=== PATIENT | female | born 1985 | race Hispanic/Latino ===

== ENCOUNTER 2020-02-19 19:34 | Emergency (ER) | payer SELFPAY ==
[2020-02-19] MEDS ORDERED: MORPHINE SULFATE 4 MG/1ML SYG ONE (20:02)
[2020-02-19] MEDS ORDERED: ONDANSETRON HCL 4 MG/2 ML VIAL ONE (20:02)
[2020-02-19] MEDS ORDERED: SODIUM CHLORIDE 0.9% 1000ML 1,000 ML IV ONE (21:07)
[2020-02-19] MEDS ORDERED: DICYCLOMINE HCL 20 MG TAB ONE (22:04)
== END 2020-02-19 23:12 | disposition home or self-care (01) ==
LOC: EDH 19:34
DX: K52.9 Noninfective gastroenteritis and colitis, unspecified (principal)
CPT/HCPCS: 36415; 76705; 80053; 81001; 81025; 83690; 85025; 96361; 96374; 96375; 99284; J2270; J2405; J7030

== ENCOUNTER 2020-03-04 12:16 | Emergency (ER) | payer SELFPAY ==
[2020-03-04 14:05] LABS: APPEARANCE,URINE Clear (CLEAR); BILIRUBIN,URINE Negative (NEGATIVE); COLOR,URINE Yellow (YELLOW); GLUCOSE, URINE (UA) TRACE mg/dL (NEGATIVE); KETONES,URINE Negative (NEGATIVE); LEUKOCYTE ESTERASE ,URINE Trace (NEGATIVE); NITRATE,URINE Negative (NEGATIVE); OCCULT BLOOD,URINE Negative (NEGATIVE); PH,URINE 6.5 (5.0-8.0); PROTEIN,URINE Trace mg/dL (NEGATIVE)
[2020-03-04 14:06] LABS: HCG,QUAL RESULT NEGATIVE (NEGATIVE)
[2020-03-04 14:09] LABS: BASOPHILS % (AUTO) 0.4 % (0.0-5.0); EOSINOPHILS % (AUTO) 2.6 % (0.0-8.0); HEMATOCRIT 47.3 % (36-48); LYMPHOCYTES % (AUTO) 23.3 % (21.0-51.0); MEAN CORPUSCULAR HGB CONC 33.2 g/dL (32.0-36.0); MEAN CORPUSCULAR VOLUME 87.3 fL (79-99); MONOCYTES % (AUTO) 3.3 % (3.0-13.0); NEUTROPHILS % (AUTO) 70.1 % (40.0-77.0); PLATELET COUNT (AUTO) 184 K/uL (130-400); RED BLOOD CELL COUNT(AUTO) 5.42 MIL/uL (4.00-5.50); RED CELL DISTRIBUTION WIDTH 13.4 % (11.0-15.5); WHITE BLOOD COUNT (AUTO) 7.2 K/uL (4.8-10.8)
[2020-03-04 14:22] LABS: CREATININE 0.7 mg/dL (0.5-1.5); POTASSIUM 3.8 mmol/L (3.5-5.1)
[2020-03-04] MEDS ORDERED: ONDANSETRON HCL 4 MG/2 ML VIAL ONE (14:25)
[2020-03-04] MEDS ORDERED: KETOROLAC TROMETHAMINE 30MG/ML ONE (14:25)
[2020-03-04 14:26] LABS: BACTERIA,URINE Few /HPF (None Seen); MUCUS,URINE Many LPF (None Seen); SQUAMOUS EPITHELIAL CELL,UR Moderate /HPF (0-2)
[2020-03-04 14:26] LABS: ALBUMIN 3.5 g/dL (3.5-5.0); BILIRUBIN,TOTAL 0.4 mg/dL (0.2-1.0); TOTAL PROTEIN, SERUM 7.7 g/dL (6.0-8.3)
[2020-03-04] MEDS ORDERED: FAMOTIDINE/PF 20 MG/2 ML VIAL IV ONE (14:26)
== END 2020-03-04 16:57 | disposition home or self-care (01) ==
LOC: EDH 12:16
DX: K76.89 Other specified diseases of liver (principal); R10.11 Right upper quadrant pain; R11.2 Nausea with vomiting, unspecified; Z98.890 Other specified postprocedural states
CPT/HCPCS: 36415; 74176; 80053; 81001; 81025; 83690; 85025; 93005; 96374; 96375; 99285; J1885; J2405; J3490

== ENCOUNTER 2022-04-12 13:48 | Emergency (ER) | payer OTHER ==
[~2022-04-12] VITALS: Ht 167.6 cm; Wt 86.2 kg
[2022-04-12] MEDS ORDERED: 0.9%NACL 1000ML 1,000 ML IV SCH (14:00)
[2022-04-12] MEDS ORDERED: ACETAMINOPHEN 500 MG TABLET PO ONE (14:00)
[2022-04-12] MEDS ORDERED: PHENAZOPYRIDINE HCL 200 MG TABLET PO ONE (14:00)
[2022-04-12 14:13] LABS: APPEARANCE,URINE SL CLOUDY (CLEAR); BILIRUBIN,URINE NEGATIVE (NEGATIVE); COLOR,URINE YELLOW (YELLOW); GLUCOSE, URINE (UA) 500 mg/dL (NEGATIVE); KETONES,URINE 40 mg/dL (NEGATIVE); LEUKOCYTE ESTERASE ,URINE SMALL (NEGATIVE); NITRATE,URINE NEGATIVE (NEGATIVE); OCCULT BLOOD,URINE NEGATIVE (NEGATIVE); PROTEIN,URINE 30 mg/dL (NEGATIVE); UROBILINOGEN,URINE 0.2 mg/dL (0.2-1.0)
[2022-04-12 14:14] VITALS: BP 175/85
[2022-04-12 14:14] LABS: BASOPHILS % (AUTO) 0.3 % (0.0-5.0); EOSINOPHILS % (AUTO) 3.2 % (0.0-8.0); HEMATOCRIT 36.5 % (36-48); LYMPHOCYTES % (AUTO) 24.4 % (21.0-51.0); MEAN CORPUSCULAR HEMOGLOBIN 23.2 pg (27.0-33.0); MEAN CORPUSCULAR VOLUME 74.8 fL (79-99); MONOCYTES % (AUTO) 4.1 % (3.0-13.0); NEUTROPHILS % (AUTO) 67.7 % (40.0-77.0); PLATELET COUNT (AUTO) 251 K/uL (130-400); RED BLOOD CELL COUNT(AUTO) 4.88 MIL/uL (4.00-5.50); RED CELL DISTRIBUTION WIDTH 15.5 % (11.0-15.5); WHITE BLOOD COUNT (AUTO) 8.8 K/uL (4.8-10.8)
[2022-04-12 14:24] LABS: CREATININE 0.6 mg/dL (0.5-1.5); POTASSIUM 3.2 mmol/L (3.5-5.1)
[2022-04-12 14:25] LABS: HCG,QUALITATIVE URINE NEGATIVE (NEGATIVE)
[2022-04-12 14:29] LABS: ALBUMIN 3.5 g/dL (3.5-5.0); TOTAL PROTEIN, SERUM 7.5 g/dL (6.0-8.3)
[2022-04-12] MEDS ORDERED: CEFTRIAXONE 1G VIAL ONE (14:53)
[2022-04-12 14:55] LABS: BACTERIA,URINE Few /HPF (None Seen); SQUAMOUS EPITHELIAL CELL,UR Moderate /HPF (0-2)
[2022-04-12 14:56] LABS: MUCUS,URINE Few LPF (None Seen)
[2022-04-12] MEDS ORDERED: CEFTRIAXONE 1G VIAL IVP ONE (15:00)
[2022-04-12] MEDS ORDERED: POTASSIUM BICARB/CIT AC 25 MEQ TABLET.EFF PO ONE (15:00)
[2022-04-12] MEDS ORDERED: PHEN-847 PO (15:08)
[2022-04-12] MEDS ORDERED: CEPH500B PO (15:08)
== END 2022-04-12 15:21 | disposition home or self-care (01) ==
LOC: EDH 13:48
DX: N39.0 Urinary tract infection, site not specified (principal); E11.65 Type 2 diabetes mellitus with hyperglycemia; E87.6 Hypokalemia; E66.01 Morbid (severe) obesity due to excess calories; Z68.30 Body mass index [BMI] 30.0-30.9, adult
CPT/HCPCS: 99284; 96374; 96361; 80053; 85025; 87040 ×2; 87088; 83605; 81001; 81025; 36415; J7030; J0696

== ENCOUNTER 2022-06-05 15:46 | Emergency (ER) | payer OTHER ==
[~2022-06-05] VITALS: Ht 167.6 cm; Wt 127.0 kg
[~2022-06-05 15:46] MED LIST: CEPH500B PO; PHEN-847 PO
[2022-06-05 16:09] LABS: BASOPHILS % (AUTO) 0.4 % (0.0-5.0); EOSINOPHILS % (AUTO) 3.3 % (0.0-8.0); HEMATOCRIT 35.2 % (36-48); LYMPHOCYTES % (AUTO) 23.9 % (21.0-51.0); MEAN CORPUSCULAR HEMOGLOBIN 23.4 pg (27.0-33.0); MEAN CORPUSCULAR HGB CONC 30.7 g/dL (32.0-36.0); MEAN CORPUSCULAR VOLUME 76.4 fL (79-99); MONOCYTES % (AUTO) 4.2 % (3.0-13.0); NEUTROPHILS % (AUTO) 67.8 % (40.0-77.0); PLATELET COUNT (AUTO) 258 K/uL (130-400); RED BLOOD CELL COUNT(AUTO) 4.61 MIL/uL (4.00-5.50); RED CELL DISTRIBUTION WIDTH 15.9 % (11.0-15.5); WHITE BLOOD COUNT (AUTO) 8.5 K/uL (4.8-10.8)
[2022-06-05 16:16] LABS: CREATININE 0.7 mg/dL (0.5-1.5)
[2022-06-05 16:21] LABS: ALBUMIN 3.4 g/dL (3.5-5.0); TOTAL PROTEIN, SERUM 7.4 g/dL (6.0-8.3)
[2022-06-05 16:21] LABS: APPEARANCE,URINE CLEAR (CLEAR); BILIRUBIN,URINE NEGATIVE (NEGATIVE); COLOR,URINE COLORLESS (YELLOW); GLUCOSE, URINE (UA) >=1000 mg/dL (NEGATIVE); KETONES,URINE 5 mg/dL (NEGATIVE); LEUKOCYTE ESTERASE ,URINE 25 Leu/uL (NEGATIVE); NITRATE,URINE NEGATIVE (NEGATIVE); OCCULT BLOOD,URINE NEGATIVE (NEGATIVE); PH,URINE 6.5 (5.0-8.0); PROTEIN,URINE NEGATIVE (NEGATIVE); UROBILINOGEN,URINE 0.2 mg/dL (0.2-1.0)
[2022-06-05 16:23] LABS: HCG,QUALITATIVE URINE NEGATIVE (NEGATIVE); MUCUS,URINE RARE LPF (None Seen); SQUAMOUS EPITHELIAL CELL,UR MOD /HPF (0-2); YEAST,URINE BUDDING FEW /HPF (None Seen)
[2022-06-05] MEDS ORDERED: 0.9% NACL 500ML IV.SOLN 500 ML IV SCH (16:30)
[2022-06-05] MEDS ORDERED: INSULIN HUMULIN R 100 UNIT/ML 3ML IV ONE (16:30)
[2022-06-05] MEDS ORDERED: ACETAMINOPHEN 500 MG TABLET PO ONE (17:30)
[2022-06-05 18:20] VITALS: BP 132/78
== END 2022-06-05 18:21 | disposition home or self-care (01) ==
LOC: EDH 15:46
DX: E11.9 Type 2 diabetes mellitus without complications (principal); R03.0 Elevated blood-pressure reading, without diagnosis of hypertension; R07.89 Other chest pain; E66.01 Morbid (severe) obesity due to excess calories; Z68.42 Body mass index [BMI] 45.0-49.9, adult; Z79.899 Other long term (current) drug therapy
CPT/HCPCS: 99285; 96374; 71045; 96361; 84484; 80053; 85025; 85730; 82948; 81001; 81025; 36415; 93005; J1815; J7040

== ENCOUNTER 2022-07-04 00:54 | Emergency (ER) | payer OTHER ==
[~2022-07-04] VITALS: Ht 160 cm; Wt 122.5 kg
[2022-07-04 01:08] VITALS: BP 128/75
[2022-07-04] MEDS ORDERED: IBUP-1493 PO (01:36)
[2022-07-04] MEDS ORDERED: AMOX500C2 PO (01:36)
[2022-07-04] MEDS ORDERED: OXYCODONE/ACETAMIN 5/325MG TAB PO ONE (02:00)
== END 2022-07-04 01:55 | disposition home or self-care (01) ==
LOC: EDH 00:54
DX: K04.7 Periapical abscess without sinus (principal); E11.9 Type 2 diabetes mellitus without complications; E66.9 Obesity, unspecified; Z68.42 Body mass index [BMI] 45.0-49.9, adult; Z98.890 Other specified postprocedural states

== ENCOUNTER 2022-07-10 08:30 | Inpatient (IN) | payer OTHER ==
[~2022-07-10] VITALS: Ht 160 cm; Wt 118.4 kg
[~2022-07-10 08:30] MED LIST changes: +AMOX500C2 PO; +IBUP-1493 PO
[2022-07-10 08:55] LABS: BASOPHILS % (AUTO) 0.3 % (0.0-5.0); EOSINOPHILS % (AUTO) 4.2 % (0.0-8.0); LYMPHOCYTES % (AUTO) 19.3 % (21.0-51.0); MEAN CORPUSCULAR HEMOGLOBIN 24.3 pg (27.0-33.0); MEAN CORPUSCULAR HGB CONC 30.9 g/dL (32.0-36.0); MEAN CORPUSCULAR VOLUME 78.6 fL (79-99); MONOCYTES % (AUTO) 4.8 % (3.0-13.0); NEUTROPHILS % (AUTO) 71.1 % (40.0-77.0); PLATELET COUNT (AUTO) 216 K/uL (130-400); RED CELL DISTRIBUTION WIDTH 16.4 % (11.0-15.5); WHITE BLOOD COUNT (AUTO) 8.7 K/uL (4.8-10.8)
[2022-07-10 09:04] LABS: CREATININE 0.5 mg/dL (0.5-1.5)
[2022-07-10 09:08] LABS: ALBUMIN 3.2 g/dL (3.5-5.0); TOTAL PROTEIN, SERUM 6.9 g/dL (6.0-8.3)
[2022-07-10 09:41] LABS: APPEARANCE,URINE CLEAR (CLEAR); BILIRUBIN,URINE NEGATIVE (NEGATIVE); COLOR,URINE COLORLESS (YELLOW); GLUCOSE, URINE (UA) 50 mg/dL (NEGATIVE); KETONES,URINE NEGATIVE (NEGATIVE); LEUKOCYTE ESTERASE ,URINE NEGATIVE Leu/uL (NEGATIVE); NITRATE,URINE NEGATIVE (NEGATIVE); OCCULT BLOOD,URINE NEGATIVE (NEGATIVE); PROTEIN,URINE NEGATIVE (NEGATIVE); UROBILINOGEN,URINE 0.2 mg/dL (0.2-1.0)
[2022-07-10 09:59] LABS: SQUAMOUS EPITHELIAL CELL,UR RARE /HPF (0-2); WBC,URINE 0-1 /HPF (0-1)
[2022-07-10] MEDS ORDERED: ASPIRIN 81MG CHEW TAB PO ONE (10:30)
[2022-07-10] MEDS ORDERED: IOHEXOL 350 MG/ML 100ML INFUS..BTL IV ONE (12:21)
[2022-07-10] MEDS ORDERED: FUROSEMIDE 40MG VIAL IV ONE (13:00)
[2022-07-10] MEDS ORDERED: FUROSEMIDE 40MG VIAL ONE (13:31)
[2022-07-10] MEDS ORDERED: KETOROLAC 15MG/ML VIAL (15MG/ML) ONE (13:32)
[2022-07-10] MEDS ORDERED: KETOROLAC 15MG/ML VIAL (15MG/ML) IV ONE (14:00)
[2022-07-10] MEDS ORDERED: MORPHINE 2 MG SYG IV PRN (14:30)
[2022-07-10] MEDS ORDERED: NITROGLYCERIN 1GM OINT 1 INCH/1GM TD SCH (14:30)
[2022-07-10] MEDS ORDERED: ONDANSETRON 4MG INJ IV PRN (14:30)
[2022-07-10] MEDS ORDERED: CLOPIDOGREL 300MG TAB PO ONE (14:30)
[2022-07-10] MEDS ORDERED: ASPIRIN 325MG EC TAB PO ONE ×2 (14:30→15:43)
[2022-07-10] MEDS ORDERED: NITROGLYCERIN 1GM OINT 1 INCH/1GM TD ONE (15:43)
[2022-07-10] MEDS ORDERED: CLOPIDOGREL 300MG TAB ONE (15:44)
[2022-07-10 16:48] LABS: AMPHET/METH SCREEN,URINE NEGATIVE (NEGATIVE); BARBITURATE SCREEN, URINE NEGATIVE (NEGATIVE); BENZODIAZEPINES SCREEN,URINE NEGATIVE (NEGATIVE); CANNABINOID SCREEN,URINE NEGATIVE (NEGATIVE); COCAINE SCREEN,URINE NEGATIVE (NEGATIVE); OPIATE SCREEN,URINE NEGATIVE (NEGATIVE); PHENCYCLIDINE SCREEN,URINE NEGATIVE (NEGATIVE)
[2022-07-10] MEDS ORDERED: HEPARIN 25,000 UNITS/250ML D5W 250 ML IV SCH (20:00)
[2022-07-10 20:01] LABS: BASOPHILS % (AUTO) 0.3 % (0.0-5.0); EOSINOPHILS % (AUTO) 2.9 % (0.0-8.0); LYMPHOCYTES % (AUTO) 16.4 % (21.0-51.0); MEAN CORPUSCULAR HEMOGLOBIN 24.2 pg (27.0-33.0); MEAN CORPUSCULAR HGB CONC 32.1 g/dL (32.0-36.0); MEAN CORPUSCULAR VOLUME 75.4 fL (79-99); MONOCYTES % (AUTO) 4.6 % (3.0-13.0); NEUTROPHILS % (AUTO) 75.6 % (40.0-77.0); PLATELET COUNT (AUTO) 262 K/uL (130-400); RED BLOOD CELL COUNT(AUTO) 4.51 MIL/uL (4.00-5.50); RED CELL DISTRIBUTION WIDTH 16.4 % (11.0-15.5)
[2022-07-10 20:19] LABS: CREATINE KINASE, TOTAL 42 U/L (21-232); MYOGLOBIN 15 ng/mL (10-92)
[2022-07-10] MEDS ORDERED: CARVEDILOL 3.125 MG TABLET PO SCH ×2 (21:00)
[2022-07-10] MEDS: FUROSEMIDE 40MG VIAL IVP SCH (21:09)
[2022-07-10] MEDS: ATORVASTATIN 40 MG TABLET PO SCH (21:10)
[2022-07-10] MEDS: METOPROLOL TARTRATE 25 MG TAB PO SCH (21:10)
[2022-07-10] MEDS: ACETAMINOPHEN 325 MG TAB PO PRN (21:10)
[2022-07-10] MEDS: FAMOTIDINE 20MG TAB PO SCH (21:10)
[2022-07-10] MEDS: INSULIN GLARGINE 100 UNITS/ML 10 ML VIAL SQ SCH (22:00)
[2022-07-10] MEDS ORDERED: HEPARIN 5,000 UNIT VIAL ONE (23:49)
[2022-07-10] MEDS: NITROGLYCERIN 1GM OINT 1 INCH/1GM TD SCH (23:54)
[2022-07-11] VITALS (19 sets, daily range): BP systolic 97–131; BP diastolic 43–86
[2022-07-11] MEDS: ACETAMINOPHEN 325 MG TAB PO PRN ×4 (01:33→21:13)
[2022-07-11 06:32] LABS: BASOPHILS % (AUTO) 0.3 % (0.0-5.0); HEMATOCRIT 35.1 % (36-48); MEAN CORPUSCULAR HEMOGLOBIN 24.4 pg (27.0-33.0); MEAN CORPUSCULAR HGB CONC 31.6 g/dL (32.0-36.0); MEAN CORPUSCULAR VOLUME 77.3 fL (79-99); MONOCYTES % (AUTO) 5.8 % (3.0-13.0); NEUTROPHILS % (AUTO) 60.6 % (40.0-77.0); PLATELET COUNT (AUTO) 266 K/uL (130-400); RED BLOOD CELL COUNT(AUTO) 4.54 MIL/uL (4.00-5.50); RED CELL DISTRIBUTION WIDTH 16.4 % (11.0-15.5); WHITE BLOOD COUNT (AUTO) 9.3 K/uL (4.8-10.8)
[2022-07-11 06:39] LABS: HEMOGLOBIN A1C 8.1 % (4.0-6.0)
[2022-07-11 06:48] LABS: INR 0.98 (0.85-1.15); PROTHROMBIN TIME 10.7 SEC (9.6-11.6)
[2022-07-11 06:50] LABS: PARTIAL THROMBOPLASTIN TIME 69.3 SEC (26.3-35.5)
[2022-07-11 07:04] LABS: B-TYPE NATRIURETIC PEPTIDE 286 pg/mL (0-100)
[2022-07-11 07:05] LABS: CREATININE 0.6 mg/dL (0.5-1.5); MAGNESIUM 1.7 mg/dL (1.80-2.40); PHOSPHORUS 3.4 mg/dL (2.5-4.9); POTASSIUM 3.4 mmol/L (3.5-5.1); THYROID STIMULATING HORMONE 1.78 uIU/mL (0.36-3.74)
[2022-07-11] MEDS: NITROGLYCERIN 1GM OINT 1 INCH/1GM TD SCH ×3 (07:46→23:06)
[2022-07-11] MEDS: LISINOPRIL 10 MG TABLET PO SCH (07:46)
[2022-07-11] MEDS: METOPROLOL TARTRATE 25 MG TAB PO SCH ×2 (07:47→21:03)
[2022-07-11] MEDS: FAMOTIDINE 20MG TAB PO SCH ×2 (07:47→21:02)
[2022-07-11 07:48] LABS: % IRON SATURATION 8.2 % (22-44)
[2022-07-11] MEDS: ASPIRIN 81MG CHEW TAB PO SCH (07:48)
[2022-07-11] MEDS: FUROSEMIDE 40MG VIAL IVP SCH ×2 (08:51→13:13)
[2022-07-11] MEDS ORDERED: CLOPIDOGREL 75MG TAB PO SCH ×2 (09:00→13:30)
[2022-07-11] MEDS ORDERED: KCL 20 MEQ ERTAB PO SCH (12:00)
[2022-07-11] MEDS: MAGNESIUM 2GM PREMIX 50ML 50 ML IV SCH (13:13)
[2022-07-11 14:20] LABS: PROTHROMBIN TIME 10.9 SEC (9.6-11.6)
[2022-07-11 14:22] LABS: PARTIAL THROMBOPLASTIN TIME 64.9 SEC (26.3-35.5)
[2022-07-11] MEDS: IRON SUCROSE COMPLEX 100 MG/5 ML VIAL IVP SCH (14:31)
[2022-07-11] MEDS ORDERED: NITROGLYCERIN 50MG VIAL ONE (16:58)
[2022-07-11] MEDS ORDERED: HEPARIN 10,000 UNIT/10ML (1,000 UNIT/ML) VIAL ONE (16:58)
[2022-07-11] MEDS ORDERED: IOHEXOL 350 MG/ML 100ML INFUS..BTL IV ONE (16:58)
[2022-07-11] MEDS ORDERED: SODIUM BICARB 50MEQ 50ML VIAL 50 ML ONE (16:58)
[2022-07-11] MEDS ORDERED: IOHEXOL-350 50ML VIAL IV ONE (16:58)
[2022-07-11] MEDS ORDERED: FENTANYL CITRATE PF 50 MCG/1 ML 2ML VIAL ONE (16:59)
[2022-07-11] MEDS ORDERED: MIDAZOLAM HCL 1 MG/ML 2ML VIAL ONE (16:59)
[2022-07-11] MEDS ORDERED: NICARDIPINE 25MG INJ IV ONE (17:06)
[2022-07-11] MEDS ORDERED: LIDOCAINE HCL 400MG/20ML VIAL ONE (17:14)
[2022-07-11] MEDS ORDERED: 0.9%NACL 1000ML 1,000 ML IV SCH (19:00)
[2022-07-11] MEDS: INSULIN GLARGINE 100 UNITS/ML 10 ML VIAL SQ SCH (21:00)
[2022-07-11] MEDS: ATORVASTATIN 40 MG TABLET PO SCH (21:03)
[2022-07-12] VITALS (21 sets, daily range): BP systolic 98–150; BP diastolic 53–93
[2022-07-12 03:59] LABS: BASOPHILS % (AUTO) 0.4 % (0.0-5.0); EOSINOPHILS % (AUTO) 2.9 % (0.0-8.0); HEMATOCRIT 33.9 % (36-48); LYMPHOCYTES % (AUTO) 22.8 % (21.0-51.0); MEAN CORPUSCULAR HEMOGLOBIN 24.1 pg (27.0-33.0); MEAN CORPUSCULAR HGB CONC 31.6 g/dL (32.0-36.0); MEAN CORPUSCULAR VOLUME 76.4 fL (79-99); MONOCYTES % (AUTO) 5.9 % (3.0-13.0); NEUTROPHILS % (AUTO) 67.7 % (40.0-77.0); PLATELET COUNT (AUTO) 342 K/uL (130-400); RED BLOOD CELL COUNT(AUTO) 4.44 MIL/uL (4.00-5.50); RED CELL DISTRIBUTION WIDTH 16.5 % (11.0-15.5)
[2022-07-12 04:43] LABS: CREATININE 0.4 mg/dL (0.5-1.5); POTASSIUM 3.8 mmol/L (3.5-5.1)
[2022-07-12] MEDS: NITROGLYCERIN 1GM OINT 1 INCH/1GM TD SCH ×3 (05:41→23:22)
[2022-07-12] MEDS ORDERED: IRON SUCROSE COMPLEX 200 MG in 0.9%NACL 50ML 50 ML IV SCH (09:00)
[2022-07-12] MEDS: IRON SUCROSE COMPLEX 100 MG/5 ML VIAL IVP SCH (10:00)
[2022-07-12] MEDS: LISINOPRIL 10 MG TABLET PO SCH (10:01)
[2022-07-12] MEDS: ACETAMINOPHEN 325 MG TAB PO PRN ×2 (10:01→20:13)
[2022-07-12] MEDS: FAMOTIDINE 20MG TAB PO SCH ×2 (10:01→20:20)
[2022-07-12] MEDS: METOPROLOL TARTRATE 25 MG TAB PO SCH ×2 (10:02→20:20)
[2022-07-12] MEDS: ASPIRIN 81MG CHEW TAB PO SCH (10:02)
[2022-07-12] MEDS: INSULIN HUMULIN R 100 UNIT/ML 3ML SQ SCH ×2 (16:22→20:33)
[2022-07-12] MEDS: ATORVASTATIN 40 MG TABLET PO SCH (20:20)
[2022-07-13] VITALS (7 sets, daily range): BP systolic 91–126; BP diastolic 47–86
[2022-07-13] MEDS: ACETAMINOPHEN 325 MG TAB PO PRN ×4 (00:41→18:23)
[2022-07-13 03:57] LABS: BASOPHILS % (AUTO) 0.4 % (0.0-5.0); EOSINOPHILS % (AUTO) 4.2 % (0.0-8.0); HEMATOCRIT 34.8 % (36-48); LYMPHOCYTES % (AUTO) 31.1 % (21.0-51.0); MEAN CORPUSCULAR HEMOGLOBIN 24.2 pg (27.0-33.0); MEAN CORPUSCULAR HGB CONC 30.5 g/dL (32.0-36.0); MEAN CORPUSCULAR VOLUME 79.5 fL (79-99); MONOCYTES % (AUTO) 6.6 % (3.0-13.0); NEUTROPHILS % (AUTO) 57.3 % (40.0-77.0); PLATELET COUNT (AUTO) 298 K/uL (130-400); RED BLOOD CELL COUNT(AUTO) 4.38 MIL/uL (4.00-5.50); RED CELL DISTRIBUTION WIDTH 16.3 % (11.0-15.5); WHITE BLOOD COUNT (AUTO) 9.2 K/uL (4.8-10.8)
[2022-07-13 04:20] LABS: ALBUMIN 3.4 g/dL (3.5-5.0); CREATININE 0.6 mg/dL (0.5-1.5); MAGNESIUM 1.8 mg/dL (1.80-2.40); POTASSIUM 3.7 mmol/L (3.5-5.1); TOTAL PROTEIN, SERUM 7.3 g/dL (6.0-8.3)
[2022-07-13] MEDS: INSULIN HUMULIN R 100 UNIT/ML 3ML SQ SCH ×4 (05:36→20:45)
[2022-07-13] MEDS: NITROGLYCERIN 1GM OINT 1 INCH/1GM TD SCH ×4 (05:47→20:45)
[2022-07-13] MEDS: MAGNESIUM 2GM PREMIX 50ML 50 ML IV SCH (05:47)
[2022-07-13] MEDS: ASPIRIN 81MG CHEW TAB PO SCH (08:33)
[2022-07-13] MEDS: IRON SUCROSE COMPLEX 100 MG/5 ML VIAL IVP SCH (08:33)
[2022-07-13] MEDS: LISINOPRIL 10 MG TABLET PO SCH (08:34)
[2022-07-13] MEDS: Vitamin B Complex/Vit C/Folic Acid PO SCH (08:34)
[2022-07-13] MEDS: METOPROLOL TARTRATE 25 MG TAB PO SCH ×2 (08:34→20:34)
[2022-07-13] MEDS: FAMOTIDINE 20MG TAB PO SCH ×2 (08:43→20:40)
[2022-07-13] MEDS: ATORVASTATIN 40 MG TABLET PO SCH (20:40)
[2022-07-14] MEDS: ACETAMINOPHEN 325 MG TAB PO PRN ×4 (00:01→23:10)
[2022-07-14 03:49] VITALS: BP 90/64
[2022-07-14] MEDS: NITROGLYCERIN 1GM OINT 1 INCH/1GM TD SCH ×4 (04:46→22:30)
[2022-07-14] MEDS: INSULIN HUMULIN R 100 UNIT/ML 3ML SQ SCH ×4 (05:43→20:40)
[2022-07-14 07:48] VITALS: BP 100/61
[2022-07-14] MEDS: ASPIRIN 81MG CHEW TAB PO SCH (08:18)
[2022-07-14] MEDS: Vitamin B Complex/Vit C/Folic Acid PO SCH (08:18)
[2022-07-14] MEDS: FAMOTIDINE 20MG TAB PO SCH ×2 (08:18→21:00)
[2022-07-14] MEDS: METOPROLOL TARTRATE 25 MG TAB PO SCH ×3 (08:18→21:39)
[2022-07-14] MEDS: LISINOPRIL 10 MG TABLET PO SCH (08:18)
[2022-07-14 08:29] VITALS: BP 124/68
[2022-07-14] MEDS: IRON SUCROSE COMPLEX 100 MG/5 ML VIAL IVP SCH (08:32)
[2022-07-14 11:55] VITALS: BP 104/65
[2022-07-14] MEDS: ENOXAPARIN SODIUM 40 MG/0.4 ML SYRINGE SQ SCH (12:31)
[2022-07-14 15:41] VITALS: BP 107/58
[2022-07-14 20:04] VITALS: BP 127/71
[2022-07-14] MEDS: ATORVASTATIN 40 MG TABLET PO SCH (21:39)
[2022-07-15] VITALS (22 sets, daily range): BP systolic 86–136; BP diastolic 46–84
[2022-07-15] MEDS: NITROGLYCERIN 1GM OINT 1 INCH/1GM TD SCH ×2 (06:25→13:00)
[2022-07-15] MEDS: INSULIN HUMULIN R 100 UNIT/ML 3ML SQ SCH ×4 (06:26→20:40)
[2022-07-15 07:08] LABS: BASOPHILS % (AUTO) 0.4 % (0.0-5.0); EOSINOPHILS % (AUTO) 4.6 % (0.0-8.0); HEMATOCRIT 35.8 % (36-48); LYMPHOCYTES % (AUTO) 27.8 % (21.0-51.0); MEAN CORPUSCULAR HEMOGLOBIN 24.3 pg (27.0-33.0); MEAN CORPUSCULAR HGB CONC 30.7 g/dL (32.0-36.0); MEAN CORPUSCULAR VOLUME 79.2 fL (79-99); MONOCYTES % (AUTO) 5.4 % (3.0-13.0); NEUTROPHILS % (AUTO) 61.4 % (40.0-77.0); PLATELET COUNT (AUTO) 270 K/uL (130-400); RED BLOOD CELL COUNT(AUTO) 4.52 MIL/uL (4.00-5.50); RED CELL DISTRIBUTION WIDTH 16.5 % (11.0-15.5)
[2022-07-15 07:16] LABS: CREATININE 0.6 mg/dL (0.5-1.5); MAGNESIUM 1.7 mg/dL (1.80-2.40); POTASSIUM 3.8 mmol/L (3.5-5.1)
[2022-07-15] MEDS: FAMOTIDINE 20MG TAB PO SCH ×2 (09:00→21:08)
[2022-07-15] MEDS: LISINOPRIL 10 MG TABLET PO SCH (09:28)
[2022-07-15] MEDS: METOPROLOL TARTRATE 25 MG TAB PO SCH ×2 (09:29→22:11)
[2022-07-15] MEDS: Vitamin B Complex/Vit C/Folic Acid PO SCH (09:30)
[2022-07-15] MEDS: ACETAMINOPHEN 325 MG TAB PO PRN ×2 (09:30→16:52)
[2022-07-15] MEDS: ASPIRIN 81MG CHEW TAB PO SCH (09:30)
[2022-07-15] MEDS: ENOXAPARIN SODIUM 40 MG/0.4 ML SYRINGE SQ SCH (09:31)
[2022-07-15] MEDS ORDERED: NITROGLYCERIN 50MG/D5W 250ML 250 BOT IV SCH (14:00)
[2022-07-15] MEDS ORDERED: CEFAZOLIN SODIUM 1 GM VIAL IVP SCH ×2 (18:00→19:00)
[2022-07-15] MEDS: ATORVASTATIN 40 MG TABLET PO SCH (21:06)
[2022-07-15] MEDS ORDERED: MAGNESIUM 4GM PREMIX 100ML 100 ML IV PRN (21:30)
[2022-07-16] VITALS (45 sets, daily range): BP systolic 96–154; BP diastolic 48–84
[2022-07-16] MEDS: ACETAMINOPHEN 325 MG TAB PO PRN ×2 (00:21→09:18)
[2022-07-16 03:32] LABS: BASOPHILS % (AUTO) 0.3 % (0.0-5.0); EOSINOPHILS % (AUTO) 4.1 % (0.0-8.0); HEMATOCRIT 35.1 % (36-48); LYMPHOCYTES % (AUTO) 29.1 % (21.0-51.0); MEAN CORPUSCULAR HEMOGLOBIN 24.2 pg (27.0-33.0); MEAN CORPUSCULAR HGB CONC 31.3 g/dL (32.0-36.0); MEAN CORPUSCULAR VOLUME 77.1 fL (79-99); MONOCYTES % (AUTO) 5.3 % (3.0-13.0); NEUTROPHILS % (AUTO) 60.8 % (40.0-77.0); PLATELET COUNT (AUTO) 317 K/uL (130-400); RED BLOOD CELL COUNT(AUTO) 4.55 MIL/uL (4.00-5.50); RED CELL DISTRIBUTION WIDTH 16.6 % (11.0-15.5); WHITE BLOOD COUNT (AUTO) 10.5 K/uL (4.8-10.8)
[2022-07-16 03:42] LABS: CREATININE 0.7 mg/dL (0.5-1.5); POTASSIUM 3.6 mmol/L (3.5-5.1)
[2022-07-16 03:47] LABS: ALBUMIN 3.5 g/dL (3.5-5.0); MAGNESIUM 1.9 mg/dL (1.80-2.40); PHOSPHORUS 3.6 mg/dL (2.5-4.9); TOTAL PROTEIN, SERUM 7.5 g/dL (6.0-8.3)
[2022-07-16 03:49] LABS: INR 0.99 (0.85-1.15); PROTHROMBIN TIME 10.8 SEC (9.6-11.6)
[2022-07-16 03:50] LABS: PARTIAL THROMBOPLASTIN TIME 34.5 SEC (26.3-35.5)
[2022-07-16 03:51] LABS: ABG BASE EXCESS -2.5 mmol/L (-2.0-3.0); ABG HCO3 22.1 mmol/L (21.0-28.0); ABG OXYGEN SATURATION 95.1 % (95.0-99.0); ABG PCO2 38 mmHg (32-45)
[2022-07-16] MEDS: MAGNESIUM 2GM PREMIX 50ML 50 ML IV SCH (04:18)
[2022-07-16 04:20] LABS: B-TYPE NATRIURETIC PEPTIDE 245 pg/mL (0-100)
[2022-07-16] MEDS: POTASSIUM CHLORIDE 10MEQ/100ML 10 MEQ/100 ML ML IV SCH (06:25)
[2022-07-16] MEDS: INSULIN HUMULIN R 100 UNIT/ML 3ML SQ SCH ×3 (06:25→15:56)
[2022-07-16] MEDS ORDERED: CEFAZOLIN SODIUM 2 GM VIAL ONE (07:52)
[2022-07-16] MEDS: LISINOPRIL 10 MG TABLET PO SCH (08:42)
[2022-07-16] MEDS: ASPIRIN 81MG CHEW TAB PO SCH (08:42)
[2022-07-16] MEDS: ENOXAPARIN SODIUM 40 MG/0.4 ML SYRINGE SQ SCH (08:42)
[2022-07-16] MEDS: FAMOTIDINE 20MG TAB PO SCH (08:42)
[2022-07-16] MEDS: METOPROLOL TARTRATE 25 MG TAB PO SCH (08:42)
[2022-07-16] MEDS: Vitamin B Complex/Vit C/Folic Acid PO SCH (08:42)
[2022-07-16] MEDS ORDERED: NOREPINEPHRINE BITARTRATE 8 MG in 0.9% NACL 250ML 250 ML IV PRN (10:00)
[2022-07-16] MEDS ORDERED: AMINOCAPROIC ACID 5,000MG VIAL 15,000 MG in 0.9% NACL 500ML IV.SOLN 420 ML IV PRN (10:00)
[2022-07-16] MEDS ORDERED: EPINEPHRINE PF 1MG (1:1,000) 10 MG in 0.9% NACL 250ML 240 ML IV PRN ×2 (10:00→17:30)
[2022-07-16] MEDS ORDERED: PAPAVERINE HCL 30 MG/ML 2ML VIAL ONE (14:16)
[2022-07-16] MEDS ORDERED: HEPARIN 10,000 UNIT/10ML (1,000 UNIT/ML) VIAL ONE ×2 (15:00→16:10)
[2022-07-16] MEDS: CEFAZOLIN SODIUM 1 GM VIAL ONE ×2 (16:00→16:30)
[2022-07-16] MEDS ORDERED: MIDAZOLAM HCL 1 MG/ML 2ML VIAL ONE ×2 (16:03→16:13)
[2022-07-16] MEDS ORDERED: PROTAMINE SULFATE 10 MG/ML 25ML VIAL IV ONE (16:10)
[2022-07-16] MEDS ORDERED: NOREPINEPHRINE BITARTRATE 1 MG/1 ML ML IV ONE (16:10)
[2022-07-16] MEDS ORDERED: SODIUM BICARB 50MEQ 50ML VIAL 150 ML ONE (16:10)
[2022-07-16] MEDS ORDERED: ESMOLOL HCL 10 MG/ML 10 ML VIAL ONE (16:10)
[2022-07-16] MEDS ORDERED: EPINEPHRINE PF 1MG (1:1,000) 1 MG/ML AMP ONE (16:10)
[2022-07-16] MEDS ORDERED: AMINOCAPROIC ACID 5,000MG VIAL ONE (16:10)
[2022-07-16] MEDS ORDERED: LIDOCAINE PF 100MG/5ML (2%) SYRINGE 5ML ONE ×2 (16:10→18:32)
[2022-07-16] MEDS ORDERED: PROPOFOL 10 MG/ML 20ML VIAL IV ONE (16:12)
[2022-07-16] MEDS ORDERED: FENTANYL CITRATE PF 50 MCG/1 ML 20ML VIAL IJ ONE (16:12)
[2022-07-16] MEDS ORDERED: ROCURONIUM 10MG/1ML SYR 10 MG/ML ML ONE (16:13)
[2022-07-16 16:59] LABS: ABG HCO3 18.5 mmol/L (21.0-28.0); ABG OXYGEN SATURATION 99.2 % (95.0-99.0); ABG PCO2 37 mmHg (32-45)
[2022-07-16] MEDS ORDERED: DEXTROSE 50%-WATER 50 ML DISP.SYRIN IV PRN (17:30)
[2022-07-16] MEDS ORDERED: PROPOFOL 1000 MG/100 ML 100 ML IV PRN (17:30)
[2022-07-16] MEDS ORDERED: ALBUMIN (HUMAN) 5% 250 ML IV PRN (17:30)
[2022-07-16] MEDS ORDERED: MORPHINE 2 MG SYG IV PRN ×2 (17:30)
[2022-07-16] MEDS ORDERED: AMINOCAPROIC ACID 5,000MG VIAL 15,000 MG in 0.9% NACL 250ML 250 ML IV SCH (17:30)
[2022-07-16] MEDS ORDERED: NOREPINEPHRIN 4MG/NS 250ML 250 ML IV PRN (17:30)
[2022-07-16] MEDS ORDERED: INSULIN REGULAR, HUMAN 3ML 100 UNIT in 0.9%NACL 100ML 99 ML IV SCH ×2 (17:30)
[2022-07-16] MEDS ORDERED: POTASSIUM PHOS 15 mMOL+NS250ML 250 ML IV PRN (17:30)
[2022-07-16] MEDS ORDERED: NITROGLYCERIN 50MG/D5W 250ML 250 BOT IV SCH (17:30)
[2022-07-16] MEDS ORDERED: ACETAMINOPHEN 650 MG SUPPOSITORY RC PRN (17:30)
[2022-07-16] MEDS ORDERED: GLUCAGON 1MG KIT 1 MG ML IM PRN (17:30)
[2022-07-16] MEDS ORDERED: 0.9% NACL 500ML IV.SOLN 500 ML IV SCH (17:30)
[2022-07-16] MEDS ORDERED: 0.9%NACL 1000ML 1,000 ML IV SCH (17:30)
[2022-07-16] MEDS ORDERED: ACETAMINOPHEN 325 MG TAB PO PRN (17:30)
[2022-07-16] MEDS ORDERED: 0.9%NACL 10ML VIAL IVP PRN (17:30)
[2022-07-16 18:52] LABS: ABG BASE EXCESS -6.1 mmol/L (-2.0-3.0); ABG HCO3 18.6 mmol/L (21.0-28.0); ABG OXYGEN SATURATION 99.6 % (95.0-99.0); ABG PCO2 34 mmHg (32-45)
[2022-07-16 19:34] LABS: ABG BASE EXCESS -4.1 mmol/L (-2.0-3.0); ABG HCO3 21.1 mmol/L (21.0-28.0); ABG OXYGEN SATURATION 95.6 % (95.0-99.0); ABG PCO2 39 mmHg (32-45)
[2022-07-16 19:40] LABS: HEMATOCRIT 28.3 % (36-48); MEAN CORPUSCULAR HEMOGLOBIN 24.5 pg (27.0-33.0); MEAN CORPUSCULAR HGB CONC 31.8 g/dL (32.0-36.0); MEAN CORPUSCULAR VOLUME 76.9 fL (79-99); RED BLOOD CELL COUNT(AUTO) 3.68 MIL/uL (4.00-5.50); RED CELL DISTRIBUTION WIDTH 16.5 % (11.0-15.5); WHITE BLOOD COUNT (AUTO) 29.6 K/uL (4.8-10.8)
[2022-07-16 19:50] LABS: INR 1.08 (0.85-1.15); PROTHROMBIN TIME 11.7 SEC (9.6-11.6)
[2022-07-16] MEDS: SODIUM BICARB 50MEQ 50ML VIAL IV PRN ×4 (19:51→23:54)
[2022-07-16 19:52] LABS: CREATININE 0.7 mg/dL (0.5-1.5); MAGNESIUM 1.6 mg/dL (1.80-2.40); PARTIAL THROMBOPLASTIN TIME 29.1 SEC (26.3-35.5); PHOSPHORUS 3.5 mg/dL (2.5-4.9)
[2022-07-16] MEDS: POTASSIUM CHLORIDE 20MEQ/100ML 100 ML IV PRN ×6 (19:52→23:54)
[2022-07-16] MEDS: CALCIUM GLUC 1GM 1 GM in 0.9%NACL 50ML 50 ML IV PRN ×4 (19:53→22:39)
[2022-07-16] MEDS: MAGNESIUM 2GM PREMIX 50ML 50 ML IV PRN (19:58)
[2022-07-16] MEDS ORDERED: ASPIRIN 81MG CHEW TAB NG ONE (20:00)
[2022-07-16 20:41] LABS: ABG BASE EXCESS 0.8 mmol/L (-2.0-3.0); ABG HCO3 25.7 mmol/L (21.0-28.0); ABG OXYGEN SATURATION 97.2 % (95.0-99.0); ABG PCO2 42 mmHg (32-45)
[2022-07-16] MEDS: ATORVASTATIN 40 MG TABLET PO SCH (21:05)
[2022-07-16] MEDS: FAMOTIDINE 20MG VIAL IV SCH (21:05)
[2022-07-16 21:43] LABS: ABG BASE EXCESS -1.9 mmol/L (-2.0-3.0); ABG HCO3 23.5 mmol/L (21.0-28.0); ABG OXYGEN SATURATION 97.9 % (95.0-99.0); ABG PCO2 43 mmHg (32-45)
[2022-07-16] MEDS ORDERED: 0.9%NACL 100ML 100 ML ONE (22:18)
[2022-07-16] MEDS ORDERED: VASOPRESSIN 20 UNITS/ML 1ML VIAL ONE (22:18)
[2022-07-16] MEDS ORDERED: VASOPRESSIN 20 UNITS in 0.9%NACL 100ML 99 ML IV PRN (22:30)
[2022-07-16 22:35] LABS: ABG HCO3 23.3 mmol/L (21.0-28.0); ABG OXYGEN SATURATION 97.6 % (95.0-99.0); ABG PCO2 42 mmHg (32-45)
[2022-07-16] MEDS: CEFAZOLIN SODIUM 2 GM VIAL IV SCH (22:47)
[2022-07-16 23:45] LABS: ABG BASE EXCESS -4.7 mmol/L (-2.0-3.0); ABG HCO3 20.2 mmol/L (21.0-28.0); ABG OXYGEN SATURATION 97.6 % (95.0-99.0); ABG PCO2 37 mmHg (32-45)
[2022-07-17] VITALS (65 sets, daily range): BP systolic 105–137; BP diastolic 50–83
[2022-07-17 00:42] LABS: ABG BASE EXCESS 1.1 mmol/L (-2.0-3.0); ABG HCO3 25.5 mmol/L (21.0-28.0); ABG OXYGEN SATURATION 97.6 % (95.0-99.0); ABG PCO2 39 mmHg (32-45)
[2022-07-17] MEDS: CALCIUM GLUC 1GM 1 GM in 0.9%NACL 50ML 50 ML IV PRN ×2 (00:43→02:03)
[2022-07-17] MEDS: POTASSIUM CHLORIDE 20MEQ/100ML 100 ML IV PRN ×3 (00:44→09:02)
[2022-07-17 01:46] LABS: ABG HCO3 25.5 mmol/L (21.0-28.0); ABG OXYGEN SATURATION 97.3 % (95.0-99.0); ABG PCO2 40 mmHg (32-45)
[2022-07-17] MEDS: POTASSIUM CHLORIDE 10MEQ/100ML 10 MEQ/100 ML ML IV SCH (02:06)
[2022-07-17] MEDS: ONDANSETRON 4MG INJ IV PRN (02:13)
[2022-07-17] MEDS: TRAMADOL HCL 50 MG TABLET PO PRN ×3 (02:15→18:06)
[2022-07-17 02:55] LABS: ABG OXYGEN SATURATION 97.1 % (95.0-99.0); ABG PCO2 43 mmHg (32-45)
[2022-07-17 03:38] LABS: HEMATOCRIT 25.9 % (36-48); MEAN CORPUSCULAR HEMOGLOBIN 24.5 pg (27.0-33.0); MEAN CORPUSCULAR HGB CONC 30.5 g/dL (32.0-36.0); MEAN CORPUSCULAR VOLUME 80.4 fL (79-99); RED BLOOD CELL COUNT(AUTO) 3.22 MIL/uL (4.00-5.50); RED CELL DISTRIBUTION WIDTH 16.6 % (11.0-15.5); WHITE BLOOD COUNT (AUTO) 14.3 K/uL (4.8-10.8)
[2022-07-17 03:48] LABS: INR 1.06 (0.85-1.15); PROTHROMBIN TIME 11.5 SEC (9.6-11.6)
[2022-07-17 03:50] LABS: CREATININE 0.9 mg/dL (0.5-1.5); MAGNESIUM 1.7 mg/dL (1.80-2.40); PARTIAL THROMBOPLASTIN TIME 26.6 SEC (26.3-35.5); PHOSPHORUS 1.5 mg/dL (2.5-4.9); POTASSIUM 4.1 mmol/L (3.5-5.1)
[2022-07-17] MEDS: MAGNESIUM 2GM PREMIX 50ML 50 ML IV PRN (04:11)
[2022-07-17] MEDS: CEFAZOLIN SODIUM 2 GM VIAL IV SCH ×2 (05:44→13:18)
[2022-07-17] MEDS: ACETAMINOPHEN 325 MG TAB PO PRN ×2 (07:17→13:15)
[2022-07-17] MEDS: Vitamin B Complex/Vit C/Folic Acid PO SCH (08:58)
[2022-07-17] MEDS: FAMOTIDINE 20MG VIAL IV SCH ×2 (08:58→20:11)
[2022-07-17] MEDS: FUROSEMIDE 20MG VIAL IV SCH ×2 (08:59→20:11)
[2022-07-17] MEDS: ASPIRIN 81MG CHEW TAB PO SCH (09:00)
[2022-07-17 09:13] LABS: HEMATOCRIT 24.1 % (36-48); RETICULOCYTE % (AUTO) 3.04 % (0.42-2.23)
[2022-07-17 09:37] LABS: % IRON SATURATION 4.9 % (22-44)
[2022-07-17 14:20] LABS: MAGNESIUM 2.1 mg/dL (1.80-2.40); PHOSPHORUS 4.7 mg/dL (2.5-4.9)
[2022-07-17] MEDS: ATORVASTATIN 40 MG TABLET PO SCH (20:11)
[2022-07-18] VITALS (42 sets, daily range): BP systolic 102–142; BP diastolic 48–75
[2022-07-18] MEDS: POTASSIUM CHLORIDE 10MEQ/100ML 10 MEQ/100 ML ML IV SCH (03:18)
[2022-07-18] MEDS: TRAMADOL HCL 50 MG TABLET PO PRN ×3 (03:21→16:30)
[2022-07-18 03:36] LABS: BASOPHILS % (AUTO) 0.3 % (0.0-5.0); EOSINOPHILS % (AUTO) 0.2 % (0.0-8.0); HEMATOCRIT 23.4 % (36-48); MEAN CORPUSCULAR HEMOGLOBIN 24.7 pg (27.0-33.0); MEAN CORPUSCULAR HGB CONC 29.9 g/dL (32.0-36.0); MEAN CORPUSCULAR VOLUME 82.7 fL (79-99); NEUTROPHILS % (AUTO) 74.2 % (40.0-77.0); PLATELET COUNT (AUTO) 213 K/uL (130-400); RED BLOOD CELL COUNT(AUTO) 2.83 MIL/uL (4.00-5.50); RED CELL DISTRIBUTION WIDTH 17.8 % (11.0-15.5); WHITE BLOOD COUNT (AUTO) 10.6 K/uL (4.8-10.8)
[2022-07-18 03:49] LABS: CREATININE 0.6 mg/dL (0.5-1.5); MAGNESIUM 1.9 mg/dL (1.80-2.40); PHOSPHORUS 3.5 mg/dL (2.5-4.9); POTASSIUM 3.4 mmol/L (3.5-5.1)
[2022-07-18] MEDS: POTASSIUM CHLORIDE 20MEQ/100ML 100 ML IV PRN ×2 (05:52→07:45)
[2022-07-18 06:12] LABS: HEMATOCRIT 23.8 % (36-48)
[2022-07-18] MEDS: MAGNESIUM 2GM PREMIX 50ML 50 ML IV PRN (07:44)
[2022-07-18] MEDS ORDERED: IRON SUCROSE COMPLEX IV SCH (09:00)
[2022-07-18] MEDS ORDERED: [UNRECOGNIZED DRUG - OTHER] IV SCH (09:00)
[2022-07-18] MEDS: ASPIRIN 81MG CHEW TAB PO SCH (09:28)
[2022-07-18] MEDS: METOPROLOL TARTRATE 25 MG TAB PO SCH ×2 (09:28→20:13)
[2022-07-18] MEDS: FAMOTIDINE 20MG VIAL IV SCH ×2 (09:28→20:13)
[2022-07-18] MEDS: Vitamin B Complex/Vit C/Folic Acid PO SCH (09:29)
[2022-07-18] MEDS: FUROSEMIDE 20 MG TABLET PO SCH ×2 (09:29→18:09)
[2022-07-18] MEDS: CYANOCOBALAMIN (VITAMIN B-12) 1000 MCG/ML 1ML VIAL IM SCH (10:01)
[2022-07-18] MEDS: INSULIN HUMULIN R 100 UNIT/ML 3ML SQ SCH ×3 (11:30→20:13)
[2022-07-18] MEDS: ONDANSETRON 4MG INJ IV PRN ×2 (11:33→16:29)
[2022-07-18] MEDS: ACETAMINOPHEN 325 MG TAB PO PRN (12:09)
[2022-07-18 12:25] LABS: HEMATOCRIT 22.9 % (36-48)
[2022-07-18 17:18] LABS: HEMATOCRIT 25.4 % (36-48)
[2022-07-18] MEDS: ATORVASTATIN 40 MG TABLET PO SCH (20:13)
[2022-07-19] VITALS (24 sets, daily range): BP systolic 84–130; BP diastolic 48–75
[2022-07-19] MEDS: ONDANSETRON 4MG INJ IV PRN (02:29)
[2022-07-19] MEDS: POTASSIUM CHLORIDE 10MEQ/100ML 10 MEQ/100 ML ML IV SCH (04:21)
[2022-07-19 04:25] LABS: HEMATOCRIT 27.8 % (36-48); MEAN CORPUSCULAR HEMOGLOBIN 26.1 pg (27.0-33.0); MEAN CORPUSCULAR HGB CONC 30.9 g/dL (32.0-36.0); MEAN CORPUSCULAR VOLUME 84.5 fL (79-99); NUCLEATED RED BLOOD CELLS 0.2 % (0.0-0.19); PLATELET COUNT (AUTO) 198 K/uL (130-400); RED BLOOD CELL COUNT(AUTO) 3.29 MIL/uL (4.00-5.50); RED CELL DISTRIBUTION WIDTH 16.5 % (11.0-15.5); WHITE BLOOD COUNT (AUTO) 11.8 K/uL (4.8-10.8)
[2022-07-19 04:33] LABS: CREATININE 0.4 mg/dL (0.5-1.5)
[2022-07-19] MEDS: ACETAMINOPHEN 325 MG TAB PO PRN ×3 (05:24→17:14)
[2022-07-19] MEDS: INSULIN HUMULIN R 100 UNIT/ML 3ML SQ SCH ×4 (06:30→20:35)
[2022-07-19] MEDS: ASPIRIN 81MG CHEW TAB PO SCH (08:10)
[2022-07-19] MEDS: IRON SUCROSE COMPLEX 100 MG/5 ML VIAL IVP SCH (08:11)
[2022-07-19] MEDS: METOPROLOL TARTRATE 25 MG TAB PO SCH ×2 (08:11→20:32)
[2022-07-19] MEDS: FUROSEMIDE 20 MG TABLET PO SCH ×2 (08:11→17:15)
[2022-07-19] MEDS: Vitamin B Complex/Vit C/Folic Acid PO SCH (08:11)
[2022-07-19] MEDS: FAMOTIDINE 20MG VIAL IV SCH (08:12)
[2022-07-19] MEDS: ENOXAPARIN SODIUM 30 MG/0.3 ML SQ SCH (08:12)
[2022-07-19] MEDS: CYANOCOBALAMIN (VITAMIN B-12) 1000 MCG/ML 1ML VIAL IM SCH (08:56)
[2022-07-19] MEDS: GABAPENTIN 300 MG CAPSULE PO SCH ×2 (08:56→20:33)
[2022-07-19] MEDS: ATORVASTATIN 40 MG TABLET PO SCH (20:34)
[2022-07-19] MEDS: TRAMADOL HCL 50 MG TABLET PO PRN (20:34)
[2022-07-20] VITALS (14 sets, daily range): BP systolic 97–119; BP diastolic 51–75
[2022-07-20 04:07] LABS: BASOPHILS % (AUTO) 0.3 % (0.0-5.0); HEMATOCRIT 27.8 % (36-48); LYMPHOCYTES % (AUTO) 25.5 % (21.0-51.0); MEAN CORPUSCULAR HGB CONC 30.6 g/dL (32.0-36.0); MONOCYTES % (AUTO) 5.8 % (3.0-13.0); NEUTROPHILS % (AUTO) 64.8 % (40.0-77.0); PLATELET COUNT (AUTO) 213 K/uL (130-400); RED BLOOD CELL COUNT(AUTO) 3.27 MIL/uL (4.00-5.50); RED CELL DISTRIBUTION WIDTH 16.7 % (11.0-15.5); WHITE BLOOD COUNT (AUTO) 9.6 K/uL (4.8-10.8)
[2022-07-20 04:22] LABS: CREATININE 0.5 mg/dL (0.5-1.5); MAGNESIUM 1.7 mg/dL (1.80-2.40); PHOSPHORUS 2.8 mg/dL (2.5-4.9); POTASSIUM 3.3 mmol/L (3.5-5.1)
[2022-07-20] MEDS: POTASSIUM CHLORIDE 10MEQ/100ML 10 MEQ/100 ML ML IV SCH (04:30)
[2022-07-20] MEDS: TRAMADOL HCL 50 MG TABLET PO PRN (04:58)
[2022-07-20] MEDS: INSULIN HUMULIN R 100 UNIT/ML 3ML SQ SCH ×4 (05:01→20:06)
[2022-07-20] MEDS: POTASSIUM CHLORIDE 20MEQ/100ML 100 ML IV PRN (05:21)
[2022-07-20] MEDS: MAGNESIUM 2GM PREMIX 50ML 50 ML IV PRN (05:21)
[2022-07-20] MEDS ORDERED: 0.9%NACL 100ML 100 ML ONE (08:15)
[2022-07-20] MEDS: IRON SUCROSE COMPLEX 100 MG/5 ML VIAL IVP SCH (08:27)
[2022-07-20] MEDS: CYANOCOBALAMIN (VITAMIN B-12) 1000 MCG/ML 1ML VIAL IM SCH (08:40)
[2022-07-20] MEDS: GABAPENTIN 300 MG CAPSULE PO SCH ×3 (08:41→20:03)
[2022-07-20] MEDS: ASPIRIN 81MG CHEW TAB PO SCH (08:41)
[2022-07-20] MEDS: Vitamin B Complex/Vit C/Folic Acid PO SCH (08:41)
[2022-07-20] MEDS: FUROSEMIDE 20 MG TABLET PO SCH (08:42)
[2022-07-20] MEDS: ENOXAPARIN SODIUM 30 MG/0.3 ML SQ SCH (08:42)
[2022-07-20] MEDS: ACETAMINOPHEN 325 MG TAB PO PRN (08:48)
[2022-07-20] MEDS: MAGNESIUM CHLORIDE 70 MG TABLET.SA PO SCH (11:03)
[2022-07-20 11:05] LABS: MAGNESIUM 2.1 mg/dL (1.80-2.40); POTASSIUM 3.5 mmol/L (3.5-5.1)
[2022-07-20] MEDS: METOPROLOL TARTRATE 25 MG TAB PO SCH ×2 (11:07→20:03)
[2022-07-20] MEDS ORDERED: KCL 20 MEQ ERTAB PO PRN (11:30)
[2022-07-20] MEDS: POTASSIUM CHLORIDE 10% ELIXIR 20 MEQ/15 ML UDCUP PO PRN ×2 (11:41→14:10)
[2022-07-20] MEDS: KETOROLAC 30MG VIAL (30MG/ML) IVP PRN ×2 (16:20→22:34)
[2022-07-20] MEDS: ATORVASTATIN 40 MG TABLET PO SCH (20:03)
[2022-07-21] VITALS (9 sets, daily range): BP systolic 94–114; BP diastolic 52–73
[2022-07-21 04:19] LABS: BASOPHILS % (AUTO) 0.5 % (0.0-5.0); EOSINOPHILS % (AUTO) 3.8 % (0.0-8.0); HEMATOCRIT 27.5 % (36-48); MEAN CORPUSCULAR HEMOGLOBIN 26.4 pg (27.0-33.0); MEAN CORPUSCULAR HGB CONC 30.9 g/dL (32.0-36.0); MEAN CORPUSCULAR VOLUME 85.4 fL (79-99); MONOCYTES % (AUTO) 6.7 % (3.0-13.0); NEUTROPHILS % (AUTO) 58.5 % (40.0-77.0); NUCLEATED RED BLOOD CELLS 0.2 % (0.0-0.19); PLATELET COUNT (AUTO) 249 K/uL (130-400); RED BLOOD CELL COUNT(AUTO) 3.22 MIL/uL (4.00-5.50); WHITE BLOOD COUNT (AUTO) 9.3 K/uL (4.8-10.8)
[2022-07-21] MEDS: POTASSIUM CHLORIDE 10MEQ/100ML 10 MEQ/100 ML ML IV SCH ×2 (04:30→05:03)
[2022-07-21 04:45] LABS: ALBUMIN 2.6 g/dL (3.5-5.0); CREATININE 0.5 mg/dL (0.5-1.5); MAGNESIUM 2.2 mg/dL (1.80-2.40)
[2022-07-21 05:20] LABS: B-TYPE NATRIURETIC PEPTIDE 322 pg/mL (0-100)
[2022-07-21] MEDS: INSULIN HUMULIN R 100 UNIT/ML 3ML SQ SCH ×4 (07:30→20:19)
[2022-07-21] MEDS ORDERED: FUROSEMIDE 20 MG TABLET PO SCH (09:00)
[2022-07-21] MEDS ORDERED: 0.9%NACL 100ML 100 ML ONE (09:04)
[2022-07-21] MEDS: METOPROLOL TARTRATE 25 MG TAB PO SCH ×2 (09:49→21:00)
[2022-07-21] MEDS: Vitamin B Complex/Vit C/Folic Acid PO SCH (09:49)
[2022-07-21] MEDS: ASPIRIN 81MG CHEW TAB PO SCH (09:49)
[2022-07-21] MEDS: KETOROLAC 30MG VIAL (30MG/ML) IVP PRN (09:49)
[2022-07-21] MEDS: IRON SUCROSE COMPLEX 100 MG/5 ML VIAL IVP SCH (09:49)
[2022-07-21] MEDS: MAGNESIUM CHLORIDE 70 MG TABLET.SA PO SCH (09:50)
[2022-07-21] MEDS: GABAPENTIN 300 MG CAPSULE PO SCH ×3 (09:50→20:15)
[2022-07-21] MEDS: ENOXAPARIN SODIUM 30 MG/0.3 ML SQ SCH (09:51)
[2022-07-21] MEDS: CYANOCOBALAMIN (VITAMIN B-12) 1000 MCG/ML 1ML VIAL IM SCH ×2 (09:58→11:05)
[2022-07-21] MEDS: ACETAMINOPHEN 325 MG TAB PO PRN ×2 (16:41→21:54)
[2022-07-21] MEDS: ATORVASTATIN 40 MG TABLET PO SCH (20:16)
[2022-07-22] VITALS: BP 114/64
[2022-07-22 04:00] VITALS: BP 114/65
[2022-07-22] MEDS: POTASSIUM CHLORIDE 10MEQ/100ML 10 MEQ/100 ML ML IV SCH (04:30)
[2022-07-22] MEDS: INSULIN HUMULIN R 100 UNIT/ML 3ML SQ SCH ×4 (06:56→19:45)
[2022-07-22] MEDS: ACETAMINOPHEN 325 MG TAB PO PRN ×2 (07:39→16:46)
[2022-07-22] MEDS: ASPIRIN 81MG CHEW TAB PO SCH (08:58)
[2022-07-22] MEDS: METOPROLOL TARTRATE 25 MG TAB PO SCH ×2 (09:00→19:57)
[2022-07-22] MEDS: GABAPENTIN 300 MG CAPSULE PO SCH ×3 (09:00→19:56)
[2022-07-22] MEDS: Vitamin B Complex/Vit C/Folic Acid PO SCH (09:00)
[2022-07-22] MEDS: ENOXAPARIN SODIUM 30 MG/0.3 ML SQ SCH (09:05)
[2022-07-22] MEDS ORDERED: EPOETIN ALFA-EPBX (NON-ESRD) 10,000 UNIT/ML VIAL SQ SCH (09:30)
[2022-07-22] MEDS: IRON SUCROSE COMPLEX 100 MG/5 ML VIAL IVP SCH (10:21)
[2022-07-22] MEDS: MAGNESIUM CHLORIDE 70 MG TABLET.SA PO SCH (10:21)
[2022-07-22] MEDS: CYANOCOBALAMIN (VITAMIN B-12) 1000 MCG/ML 1ML VIAL IM SCH (10:54)
[2022-07-22 12:00] VITALS: BP 121/58
[2022-07-22 16:00] VITALS: BP 102/57
[2022-07-22] MEDS ORDERED: FUROSEMIDE 20 MG TABLET ONE (19:18)
[2022-07-22 19:24] VITALS: BP 119/70
[2022-07-22] MEDS: ATORVASTATIN 40 MG TABLET PO SCH (19:57)
[2022-07-22] MEDS ORDERED: METO25 PO (20:48)
[2022-07-22] MEDS ORDERED: FURO20TA6 PO (20:48)
[2022-07-22] MEDS ORDERED: ASPI-1005 PO (20:48)
[2022-07-22] MEDS ORDERED: GABA300C PO (20:48)
[2022-07-22] MEDS ORDERED: ATOR40TA69 PO (20:48)
[2022-07-22] MEDS ORDERED: FUROSEMIDE 20 MG TABLET PO SCH (21:00)
== END 2022-07-22 21:36 | disposition home or self-care (01) | DRG 233 ==
LOC: EDH 08:30 → OBSVTOIN 08:31 → EDHIP 08:31 → UNDOADMOB 14:09 → EDHIP 14:09 → 2CH 07-11 15:17 → 2AH 07-12 21:52 → 2CH 07-15 14:40 → 2CV 07-16 17:12 → 2BH 07-17 06:04 → 2DH 07-22 17:25
PROVIDERS: ADMIT Internal Medicine; ATTEND Internal Medicine
PROC: 4A023N7 Measurement of Cardiac Sampling and Pressure, Left Heart, Percutaneous Approach (ICD-10-PCS; principal; 2022-07-11)
PROC: B2111ZZ Fluoroscopy of Multiple Coronary Arteries using Low Osmolar Contrast (ICD-10-PCS; 2022-07-11)
PROC: 06BQ4ZZ Excision of Left Saphenous Vein, Percutaneous Endoscopic Approach (ICD-10-PCS; 2022-07-16)
PROC: 02100Z9 Bypass Coronary Artery, One Artery from Left Internal Mammary, Open Approach (ICD-10-PCS; 2022-07-16 14:00)
PROC: 0211093 Bypass Coronary Artery, Two Arteries from Coronary Artery with Autologous Venous Tissue, Open Approach (ICD-10-PCS; 2022-07-16 14:00)
PROC: 30233N1 Transfusion of Nonautologous Red Blood Cells into Peripheral Vein, Percutaneous Approach (ICD-10-PCS; 2022-07-18)
DX: I25.110 Atherosclerotic heart disease of native coronary artery with unstable angina pectoris (principal); I21.4 Non-ST elevation (NSTEMI) myocardial infarction; I50.43 Acute on chronic combined systolic (congestive) and diastolic (congestive) heart failure; Z20.822 Contact with and (suspected) exposure to COVID-19; D62 Acute posthemorrhagic anemia; I16.1 Hypertensive emergency; Z68.42 Body mass index [BMI] 45.0-49.9, adult; E11.9 Type 2 diabetes mellitus without complications; I11.0 Hypertensive heart disease with heart failure; E78.2 Mixed hyperlipidemia; E88.81 Metabolic syndrome and other insulin resistance; K76.0 Fatty (change of) liver, not elsewhere classified; E66.01 Morbid (severe) obesity due to excess calories; I25.10 Atherosclerotic heart disease of native coronary artery without angina pectoris; I25.5 Ischemic cardiomyopathy; E11.65 Type 2 diabetes mellitus with hyperglycemia; Z79.899 Other long term (current) drug therapy; Z91.199 Patient's noncompliance with other medical treatment and regimen due to unspecified reason
CPT/HCPCS: 36415; 36600; 71045; 71270; 76705; 80048; 80053; 80061; 80305; 81001; 81025; 82040; 82435; 82550; 82607; 82728; 82746; 82803; 82947; 82948; 83036; 83540; 83550; 83605; 83690; 83735; 83874; 83880; 84100; 84132; 84134; 84145; 84295; 84443; 84484; 84703; 85014; 85018; 85025; 85027; 85045; 85378; 85610; 85730; 86850; 86900; 86901; 86923; 87324; 87635; 87641; 93005; 93306; 93458; 93880; 94002; 94003; 94010; 94150; 97039; 99156; 99157; A7048; C9803; G0378; J0171; J0610; J0690; J1644; J1650; J1756; J1815; J1885; J1940; J2001; J2250; J2405; J2440; J2704; J2720; J3010; J3420; J3475; J3480; J3490; J7030; J7040; P9016; P9045; Q9967

== ENCOUNTER 2022-09-04 00:56 | Emergency (ER) | payer OTHER ==
[~2022-09-04] VITALS: Ht 167.6 cm; Wt 117.9 kg
[~2022-09-04 00:56] MED LIST changes: -AMOX500C2 PO; +ASPI-1005 PO; +ATOR40TA69 PO; -CEPH500B PO; +FURO20TA6 PO; +GABA300C PO; -IBUP-1493 PO; +METO25 PO; -PHEN-847 PO
[2022-09-04] MEDS ORDERED: ONDANSETRON 4MG INJ IVP ONE (01:00)
[2022-09-04 01:11] LABS: BASOPHILS % (AUTO) 0.5 % (0.0-5.0); EOSINOPHILS % (AUTO) 3.1 % (0.0-8.0); HEMATOCRIT 34.3 % (36-48); MEAN CORPUSCULAR HGB CONC 33.8 g/dL (32.0-36.0); MEAN CORPUSCULAR VOLUME 85.8 fL (79-99); NEUTROPHILS % (AUTO) 57.2 % (40.0-77.0); PLATELET COUNT (AUTO) 263 K/uL (130-400); RED CELL DISTRIBUTION WIDTH 15.9 % (11.0-15.5); WHITE BLOOD COUNT (AUTO) 10.5 K/uL (4.8-10.8)
[2022-09-04 01:24] LABS: CREATININE 0.6 mg/dL (0.5-1.5); POTASSIUM 3.7 mmol/L (3.5-5.1)
[2022-09-04 01:29] LABS: ALBUMIN 3.8 g/dL (3.5-5.0); TOTAL PROTEIN, SERUM 7.3 g/dL (6.0-8.3)
[2022-09-04 01:33] LABS: B-TYPE NATRIURETIC PEPTIDE 69 pg/mL (0-100)
[2022-09-04] MEDS ORDERED: MAG/ALUM/SIMETH 30 ML UDCUP ONE (01:34)
[2022-09-04] MEDS ORDERED: LIDOCAINE HCL 2% VISCOUS 15 ML UDCUP ONE (01:34)
[2022-09-04] MEDS ORDERED: OMEP40CA21 PO (01:58)
[2022-09-04 02:47] VITALS: BP 153/89
== END 2022-09-04 02:53 | disposition home or self-care (01) ==
LOC: EDH 00:56
DX: K29.70 Gastritis, unspecified, without bleeding (principal); E11.9 Type 2 diabetes mellitus without complications; I10 Essential (primary) hypertension; E78.00 Pure hypercholesterolemia, unspecified; Z95.1 Presence of aortocoronary bypass graft; Z79.82 Long term (current) use of aspirin; Z79.899 Other long term (current) drug therapy
CPT/HCPCS: 36415; 80053; 83690; 83880; 84484; 85025; 93005; 96374

== ENCOUNTER 2023-06-19 07:59 | Emergency (ER) | payer BC ==
[~2023-06-19] VITALS: Ht 167.6 cm; Wt 117.9 kg
[~2023-06-19 07:59] MED LIST changes: +ACET-2079 PO; +AMOX-426 PO; +OMEP40CA21 PO
[2023-06-19 08:00] VITALS: BP 154/90; PULSE 79; RESP 17
[2023-06-19 08:24] LABS: BASOPHILS # (AUTO) 0.04 K/uL (0.00-0.20); BASOPHILS % (AUTO) 0.4 % (0.0-5.0); EOSINOPHILS # (AUTO) 0.25 K/uL (0.00-0.70); EOSINOPHILS % (AUTO) 2.5 % (0.0-8.0); HEMATOCRIT 35.3 % (36-48); IMMATURE GRANULOCYTE ABSOLUTE 0.05 K/uL (0-1); LYMPHOCYTES # (AUTO) 2.1 K/uL (1.0-4.8); LYMPHOCYTES % (AUTO) 21.2 % (21.0-51.0); MEAN CORPUSCULAR HEMOGLOBIN 23.1 pg (27.0-33.0); MEAN CORPUSCULAR VOLUME 76.9 fL (79-99); MONOCYTES # (AUTO) 0.4 K/uL (0.1-1.0); MONOCYTES % (AUTO) 4.4 % (3.0-13.0); PLATELET COUNT (AUTO) 281 K/uL (130-400); RED BLOOD CELL COUNT(AUTO) 4.59 MIL/uL (4.00-5.50); RED CELL DISTRIBUTION WIDTH 15.6 % (11.0-15.5); WHITE BLOOD COUNT (AUTO) 9.9 K/uL (4.8-10.8)
[2023-06-19 08:31] LABS: CREATININE 0.7 mg/dL (0.5-1.5); POTASSIUM 3.5 mmol/L (3.5-5.1)
[2023-06-19 08:35] LABS: ALBUMIN 3.3 g/dL (3.5-5.0); BILIRUBIN,TOTAL 0.3 mg/dL (0.2-1.0); TOTAL PROTEIN, SERUM 7.5 g/dL (6.0-8.3)
[2023-06-19 09:01] LABS: HCG,QUALITATIVE URINE NEGATIVE (NEGATIVE)
[2023-06-19 09:18] LABS: APPEARANCE,URINE CLEAR (CLEAR); BILIRUBIN,URINE NEGATIVE (NEGATIVE); COLOR,URINE LIGHT-YELLOW (YELLOW); GLUCOSE, URINE (UA) >=1000 mg/dL (NEGATIVE); KETONES,URINE NEGATIVE (NEGATIVE); LEUKOCYTE ESTERASE ,URINE NEGATIVE Leu/uL (NEGATIVE); NITRATE,URINE NEGATIVE (NEGATIVE); OCCULT BLOOD,URINE NEGATIVE (NEGATIVE); PROTEIN,URINE NEGATIVE (NEGATIVE); UROBILINOGEN,URINE 0.2 mg/dL (0.2-1.0)
[2023-06-19 09:19] LABS: ADD UA MICROSCOPIC YES
[2023-06-19 09:20] LABS: MUCUS,URINE RARE LPF (None Seen); SQUAMOUS EPITHELIAL CELL,UR FEW /HPF (0-2)
[2023-06-19] MEDS ORDERED: KETOROLAC 60 MG VIAL (30MG/ML) IM ONE (11:00)
[2023-06-19] MEDS ORDERED: IBUP-2784 PO (11:03)
== END 2023-06-19 11:36 | disposition home or self-care (01) ==
LOC: EDH 07:59
DX: S39.011A Strain of muscle, fascia and tendon of abdomen, initial encounter (principal); E66.9 Obesity, unspecified; K42.9 Umbilical hernia without obstruction or gangrene; E66.01 Morbid (severe) obesity due to excess calories; Z68.41 Body mass index [BMI] 40.0-44.9, adult; E11.9 Type 2 diabetes mellitus without complications; E78.00 Pure hypercholesterolemia, unspecified; I10 Essential (primary) hypertension; Z79.82 Long term (current) use of aspirin; Z79.899 Other long term (current) drug therapy; Z95.1 Presence of aortocoronary bypass graft; X58.XXXA Exposure to other specified factors, initial encounter; Y93.89 Activity, other specified; Y92.89 Other specified places as the place of occurrence of the external cause; Y99.8 Other external cause status
CPT/HCPCS: 99284; 74176; 80053; 83690; 85025; 81001; 81025; 36415; 96372; J1885

== ENCOUNTER 2023-11-24 20:43 | Emergency (ER) | payer BC ==
[~2023-11-24 20:43] MED LIST changes: -FURO20TA6 PO; +ISOS10TA8 PO; -METO25 PO; +METO25TA6 PO
== END 2023-11-24 23:06 | disposition left against medical advice (07) ==
LOC: EDH 20:43
DX: R52 Pain, unspecified (principal); Z53.21 Procedure and treatment not carried out due to patient leaving prior to being seen by health care provider

== ENCOUNTER 2025-03-10 03:34 | Emergency (ER) | payer SELFPAY ==
[~2025-03-10] VITALS: Ht 160 cm; Wt 112.0 kg
[~2025-03-10 03:34] MED LIST changes: +DICY20TA2 PO; +FAMO-136 PO; -ISOS10TA8 PO; +ISOS10TA96 PO
[2025-03-10] MEDS ORDERED: CLIN-141 PO (04:12)
[2025-03-10] MEDS ORDERED: IBUP-2077 PO (04:12)
--- NOTE | 2025-03-10 04:14 | ERN ---
General Chief Complaint: Tooth Ache/Pain Stated Complaint: C/O TOOTHACHE Time Seen by MD: 04:08 History of Present Illness Initial Comments 39-year-old female with a necrotic left inferior molar. No associated swelling redness. No fevers or chills. Allergies: Coded Allergies: Pork/Porcine Containing Products (Unverified Allergy, Severe, ANAPHYLAXIS, 07/04/23) No Known Allergies (Unverified Allergy, Unknown, 04/12/22) Home Meds Active Scripts Famotidine (Pepcid) 20 Mg Tablet, 1 TAB PO BID for 30 Days, #60 TAB 0 Refills Prov:SAUL MCGRATH DO 08/11/24 Dicyclomine HCl (Bentyl) 20 Mg Tab, 1 TAB PO TID for irritable bowel symptoms for 10 Days, #30 TAB 0 Refills Prov:SAUL MCGRATH DO 08/11/24 Isosorbide Mononitrate (Isosorbide Mononitrate) 10 Mg Tablet, 10 MG PO DAILYDINNER for 30 Days, #30 TAB 2 Refills Prov:JORDIN CALABRESE MD 07/04/23 Metoprolol Tartrate (Metoprolol Tartrate) 25 Mg Tablet, 25 MG PO BID for 30 Days, #60 TAB 2 Refills Prov:JORDIN CALABRESE MD 07/04/23 Amoxicillin/Potassium Clav (Augmentin 500-125 Tablet) 1 Each Tablet, 1 EACH PO TID for 10 Days, #30 TAB Prov:SAMEER IBARRA 12/04/22 Acetaminophen with Codeine (Acetaminophen-Cod #3 Tablet) 1 Each Tablet, 1 TAB PO Q4H PRN for k04.7 for 5 Days, #9 TAB Prov:SAMEER IBARRA 12/04/22 Omeprazole (Omeprazole) 40 Mg Capsule.dr, 40 MG PO DAILY, #30 CAP Prov:SHERWIN LUZ MD 09/04/22 Gabapentin (Neurontin) 300 Mg Capsule, 300 MG PO TID, #90 CAP 0 Refills Prov:JOS MCLEOD MD 07/22/22 Atorvastatin Calcium (LIPITOR) 40 Mg Tablet, 80 MG PO HS, #30 TAB 0 Refills Prov:JOS MCLEOD MD 07/22/22 Aspirin (ASPIRIN 81MG CHEW TAB) 81 Mg Tab.chew, 81 MG PO DAILY, #30 TAB.CHEW 0 Refills Prov:JOS MCLEOD MD 07/22/22 Past Medical History Past Medical History: Diabetes-Type II, High Cholesterol, Hypertension, Other Medical History Other: TRIPLE BYPASS (2021) Past Surgical History: Other Surgical History Other: TRIPLE BYPASS (2021) Family History Family History: Negative Social History Social History: Negative Constitutional: (-) chills, (-) diaphoresis, (-) fever, (-) malaise, (-) weakness, (-) other documentation EENTM: (-) eye pain, (-) blurred vision, (-) tearing, (-) double vision, (-) ear pain, (-) ear discharge, (-) nose pain, (-) nose congestion, (-) throat pain, (-) Throat swelling, (-) mouth pain, (-) tooth pain, (-) mouth swelling, (-) other documentation Respiratory: (-) cough, (-) orthopnea, (-) short of breath, (-) stridor, (-) wheezing, (-) other documentation Cardiovascular: (-) chest pain, (-) edema, (-) palpitations, (-) syncope, (-) d yspnea on exertion, (-) other documentation Gastrointestinal/Abdominal: (-) nausea, (-) vomiting, (-) diarrhea, (-) abdominal pain, (-) abdominal distention, (-) constipation, (-) rectal bleeding, (-) dark stool/melena, (-) other documentation Physical Exam General Appearance: (+) moderate distress Orientation: (+) alert, (+) oriented x 3 Eye: bilateral eye normal inspection, bilateral eye PERRL, bilateral eye EOMI Ear, Nose, Throat Comment Patient has an obvious worn left inferior molar or wisdom tooth. All of the crown is gone. MDM As we are not a hospital the provides dental care I can only prescribe antibiotics and pain medications for the patient. ED Course Vital Signs Date Time Temp Pulse Resp B/P (MAP) Pulse Ox O2 Delivery O2 Flow Rate FiO2 03/10/25 03:58 99.3 78 18 194/104 97 Room Air* 0 21 03/10/25 03:35 99.3 81 20 186/91 97 Room Air DX & DISP Disposition: Discharge Departure Impression: Primary Impression: Dental abscess Condition: Stable Scripts Ibuprofen (Ibuprofen 800 mg Tab) 800 Mg Tab 1 TAB PO TID for pain for 30 Days, #90 TAB 0 Refills Prov: GUCCI BRASWELL MD 03/10/25 Clindamycin HCl (Clindamycin HCl) 300 Mg Capsule 1 CAP PO QID for 10 Days, #40 CAP 0 Refills Prov: GUCCI BRASWELL MD 03/10/25 Additional Instructions: I have given you an antibiotic to prevent infection and also written a prescription for 800 mg ibuprofen tablets. The other medications you can use fo r your tooth pain are Oragel or Anbesol. These are both available [id number] at any drug store. You need definitive treatments so I recommend you follow-up with a dentist to either remove the tooth a try and put a crown on it. Referrals: SELF,REFERRAL (PCP) GUCCI BRASWELL MD Mar 10, 2025 04:14
[2025-03-10 05:06] VITALS: BP 156/88; PULSE 75; RESP 14; TEMP 99.2; O2SAT 98
== END 2025-03-10 05:06 | disposition home or self-care (01) ==
LOC: EDH 03:34
DX: K04.7 Periapical abscess without sinus (principal); E11.9 Type 2 diabetes mellitus without complications; E78.00 Pure hypercholesterolemia, unspecified; I10 Essential (primary) hypertension; Z79.899 Other long term (current) drug therapy; Z79.82 Long term (current) use of aspirin
CPT/HCPCS: 99283; 96372; J1885